=== PATIENT | female | born 1980 | race Two or more races ===

== ENCOUNTER 2019-10-26 21:08 | Inpatient (IN) | payer OTHER ==
[~2019-10-26] VITALS: Ht 162.6 cm; Wt 3.2 kg
[~2019-10-26 21:08] MED LIST: PRENATAL CAPLE1 EACH PO
== END 2019-10-29 14:29 | disposition home or self-care (01) | DRG 788 ==
LOC: LDR 21:08 → OB/GYN 21:08 → SURG-SUITE 23:47 → OB/GYN 10-27 00:36 → LDR 10-30 11:12
PROVIDERS: ADMIT Obstetrics & Gynecology Maternal & Fetal Medicine
PROC: 4A1HXCZ Monitoring of Products of Conception, Cardiac Rate, External Approach (ICD-10-PCS; 2019-10-26)
PROC: 10D00Z1 Extraction of Products of Conception, Low, Open Approach (ICD-10-PCS; principal; 2019-10-26 22:00)
DX: O82 Encounter for cesarean delivery without indication (principal); Z3A.39 39 weeks gestation of pregnancy; Z37.0 Single live birth; Z22.330 Carrier of Group B streptococcus